=== PATIENT | male | born 1965 | race Caucasian/White ===

== ENCOUNTER 2017-04-18 14:12 | Emergency (ER) | payer OTHER ==
[~2017-04-18] VITALS: Ht 172.7 cm; Wt 108.2 kg
[2017-04-18 14:14] VITALS: TEMP 36.8; Ht 172.7 cm; Wt 108.2 kg
--- NOTE | 2017-04-18 15:24 | EMERGENCY ROOM VISIT NOTE ---
ED Visit Note First contact with patient: 14:23 CHIEF COMPLAINT: Right-sided nosebleed 1 hour HISTORY OF PRESENT ILLNESS: Patient is a 52-year-old male who presents the emergency department for evaluation of right-sided epistaxis. His nosebleed started about 1 hour ago while he was at work. He reports intermittent right- sided bleeding for the last 2 days, but states that he is unable to get it controlled at home by sticking toilet paper up his nose. He has just recently begun to apply Neosporin to his nose. He states that the right nostril began bleeding about an hour ago. He tried applying compression with toilet paper and paper towels, but states that he was unable to get the bleeding to stop. He reports that it was dripping out the right side of his nose, he is also getting some drainage down the back of his throat. He has been using a humidifier at night. He had an episode of similar nosebleeds a couple of months ago but treated this at home and the bleeding was not as severe. He has not been ill recently with any cold or upper respiratory symptoms and denies any trauma to the nose. He takes Advil sparingly for hip pain, is not on any aspirin or other blood thinning medications. REVIEW OF SYSTEMS: Review of systems as per HPI. All other systems reviewed were negative. 10 systems reviewed. PMH: Electronic medical records are reviewed and summarized as above/below. See Problem List. SOCIAL HISTORY: Patient lives at home with his . Non-smoker. PHYSICAL EXAM: Vital Signs: Reviewed Nurse's notes. He was noted to be hypertensive in triage. CONSTITUTIONAL: Patient is a well-appearing 52-year-old white male who is awake and alert and in no acute distress. He has a nasal clamp in place put on by triage staff. HEENT: Normocephalic, atraumatic. Pupils equal, round, reactive to light and accommodation. EOMs intact without nystagmus. Sclera are anicteric. Tympanic membranes intact, with normal landmarks. External canals are clear. Oropharynx are clear. Mucous membranes are moist. Examination of the patient's nose note dried blood in the right nares, he does have a small friable lesion on the septum low that appears to be the source of bleeding. Left nares is clear. Mucous membranes are moist and patent. EMERGENCY DEPARTMENT COURSE: The patient was seen and evaluated as above. Nasal clamp was removed for examination. There was no active bleeding at this time, but visualized low on septum was a very friable area which I suspect is the source of his bleed. This area was cauterized using a silver nitrate stick. Clamp was left off, and the patient was observed and reassessed after roughly 30 minutes. There was no further bleeding. The site was rechecked and appeared stable. Supportive care measures were discussed. Patient was advised to avoid manipulating or blowing the nose here for the next several days, and educated on using a saline nasal spray, rather than trying to apply a topical ointment. He will continue the cool mist humidifier at nighttime, and was also educated on Afrin protocol to stop a nosebleed at home in the future. Blood pressure was rechecked at discharge and was normal. I suspect the elevated blood pressure reading was situational. Medication reconciliation: I attest that I have personally reviewed the patient' s current medication list. Problem List Medical Problems: (1) Migraine syndrome Status: Chronic Surgical Problems: (1) History of back surgery Status: Resolved Current/Historical Medications Scheduled Nicotine Polacrilex (Thrive), 1 DOSE PO DAILY Topiramate (Topamax), 150 MG PO BID Allergies Coded Allergies: Adhesives (Verified Allergy, Unknown, 04/18/17) Penicillins (Verified Allergy, Unknown, 04/18/17) Uncoded Allergies: NONSTEROIDAL (Adverse Reaction, Unknown, NO NSAIDS, PER MD 10/15 ADM * * NOT ADR, JUST REMINDER, 03/19/09) Vital Signs Date Time Temp Pulse Resp B/P (MAP) Pulse Ox O2 Delivery O2 Flow Rate FiO2 04/18/17 14:14 36.8 95 18 170/107 97 Room Air Departure Information Impression Primary Impression: Epistaxis Referrals Augustin Wong M.D. (PCP) Patient Instructions My [facility] Additional Instructions EPISTAXIS (NOSE BLEED) INSTRUCTIONS: Avoid scratching, rubbing, picking, or blowing your nose. The youth program director your nasal passages the more likely they are to bleed. Use an Stanly Worthington nasal spray or similar generic saline spray to keep the nose moist 3 to 4 times a day. If bleeding recurs below the nose to clear any clots, and apply 2 squirts of Afrin to the nostrils. Apply direct pressure with a nasal clamp for an uninterrupted 30 minutes. On and off pressure is much less effective because it will disturb the clots that are forming. If the bleeding is still a problem after 30 minutes or is so heavy despite the pressure return to the emergency department. Continue current medications. Follow-up with your primary care physician in 2 to 3 days for a recheck of your current condition. Follow up with ENT surgery if your symptoms persist.
[2017-04-18] MEDS ORDERED: NICO2GUM PO (15:30)
[2017-04-18] MEDS ORDERED: TOPI100T20 PO (15:30)
[2017-04-18 15:40] VITALS: BP 128/91; PULSE 76; O2SAT 97
== END 2017-04-18 15:37 | disposition home or self-care (01) ==
LOC: C.EDB 14:14 → C.EDD 15:37
DX: R04.0 Epistaxis (principal); G43.909 Migraine, unspecified, not intractable, without status migrainosus; Z79.899 Other long term (current) drug therapy; Z88.0 Allergy status to penicillin; Z91.048 Other nonmedicinal substance allergy status

== ENCOUNTER → 2017-09-07 | Outpatient (CLI) | payer OTHER ==
[~2017-09-07] MED LIST: ACET-24 PO; ASPI-461 PO; DOXY100C41 PO; IBUP-103 PO; OMEPRAZOLE PO; ONDA-170 PO; TOPI100T20 PO; ULT50X PO; [UNRECOGNIZED DRUG - OTHER] PO
--- NOTE | 2017-09-07 09:00 | DIAGNOSTIC IMAGING REPORT ---
CHEST 2 VIEWS ROUTINE HISTORY: 52 years-old Male PAT preoperative exam. No acute chest complaints COMPARISON: None available TECHNIQUE: PA and lateral views of the chest FINDINGS: Cardiomediastinal and hilar silhouettes are within normal limits. Mild right hemidiaphragmatic elevation. There is no pneumothorax, pleural effusion, focal airspace consolidation or overt pulmonary edema. The bones of the chest appear grossly intact. There are degenerative changes of the shoulders and spine. IMPRESSION: No acute process. The above report was generated using voice recognition software. It may contain grammatical, syntax or spelling errors. Electronically signed by: Ki Fernandez M.D. 09/07/2017 8:59 AM Dictated Date/Time: 09/07/2017 8:58 AM
[2017-09-07 10:34] LABS: BASO % 0.4 %; BASO ABS # 0.03 K/uL (0-0.2); EOS % 2.4 %; EOS ABS # 0.18 K/uL (0-0.5); HEMATOCRIT 45.2 % (42-52); HEMOGLOBIN 16.1 g/dL (14.0-18.0); IG# 0.03 K/uL (0.00-0.02); LYMPH % 26.1 %; LYMPH ABS # 1.97 K/uL (1.2-3.4); MEAN CELL VOLUME 87.3 fL (80-100); MEAN CORPUSCULAR HEMOGLOBIN 31.1 pg (25-34); MEAN CORPUSCULAR HGB CONC 35.6 g/dl (32-36); MEAN PLATELET VOLUME 9.9 fL (7.4-10.4); MONO % 10.9 %; MONO ABS # 0.82 K/uL (0.11-0.59); NEUT % 59.8 %; NEUT ABS # 4.51 K/uL (1.4-6.5); PLATELET COUNT 254 K/uL (130-400); RED CELL DISTRIBUTION WIDTH CV 12.9 % (11.5-14.5); RED CELL DISTRIBUTION WIDTH SD 41.5 fL (36.4-46.3); WHITE BLOOD COUNT 7.54 K/uL (4.8-10.8)
[2017-09-07 10:43] LABS: ALBUMIN 4.2 gm/dl (3.4-5.0); ALKALINE PHOSPHATASE 63 U/L (45-117); ALT/SGPT 31 U/L (12-78); AST/SGOT 22 U/L (15-37); BLOOD UREA NITROGEN 16 mg/dl (7-18); CARBON DIOXIDE 25 mmol/L (21-32); CREATININE 1.15 mg/dl (0.60-1.40); GLUCOSE 92 mg/dl (70-99); POTASSIUM 4.2 mmol/L (3.5-5.1); SODIUM 139 mmol/L (136-145); TOTAL PROTEIN 7.2 gm/dl (6.4-8.2)
[2017-09-07 10:45] LABS: PTT PATIENT 25.8 SECONDS (21.0-31.0)
--- NOTE | 2017-09-17 07:16 | CODING QUERY MEDICAL NECESSITY ---
CQTREATMENT RENDERED WITHOUT A DIAGNOSIS To promote full compliance with coding requirements relating to patient care, physician participation is requested in all cases of crane helper uncertainty. Please assist us with providing a diagnosis/symptom for the test(s) below: A diagnosis/symptom was not documented on your Order. A valid diagnosis/symptom is required to bill all insurances. Please remember that we are unable to code a diagnosis of rule out, probable, possible, questionable, or suspected. Tests that require a diagnosis: DOS 09/07/17 COMPLETE BLOOD COUNTS TEST URINE CULTURE TEST CHEST XRAY EKG TEST Provider Signature: Date: Thank you Jessy Bass Health Information Management Once completed, please kindly fax back to [phone] For questions please call [phone]
--- NOTE | 2017-10-07 17:56 | History and Physical ---
History & Physical Date Oct 07, 2017. Chief Complaint right hip pain History of Present Illness The patient is a 52 year old male with complaints of right hip pain for years. Limping constantly and cant live with this pain anymore. Hes ready for KATLYN. Past Medical/Surgical History Medical Problems: (1) Migraine syndrome Surgical Problems: (1) History of back surgery Additional History Hepatic Disease: No Endocrine Disorder: No Kidney Disease: No Hypertension: No Heart Disease: No Bleeding Tendencies: No Infectious Diseases: No Allergies Coded Allergies: Adhesives (Verified Allergy, Unknown, SKIN IRRITATION WITH TAPES, 08/28/17) Eggs or Egg-derived Products (Verified Allergy, Unknown, MIGRAINES, ) Milk (Verified Allergy, Unknown, GI UPSET, 08/28/17) Penicillins (Verified Allergy, Unknown, UNKNOWN- A CHILD, 08/28/17) Home Medications Scheduled Topiramate (Topamax), 150 MG PO BID [Omeprazole], 1 TAB PO QAM [Thrive Vit Pack], 1 DOSE PO QAM Scheduled PRN Ibuprofen Tab (Advil), 400-600 MG PO HS PRN for Pain Physical Examination Skin: warm/dry, no rash Eyes: normal inspection, EOMI, sclerae normal ENT: normal ENT inspection, pharynx normal Head: normocephalic, atraumatic Neck: supple, no adenopathy, trachea midline Respiratory/Chest: lungs clear, normal breath sounds, no respiratory distress Cardiovascular: regular rate, rhythm, no edema, no murmur Abdomen / GI: normal bowel sounds, non tender Back: normal inspection Extremities: normal inspection, normal range of motion, + pertinent finding ( pain with rom of right hip) Neurologic/Psych: no motor/sensory deficits, alert, normal reflexes, oriented x 3 Diagnosis djd right hip Plan of Treatment admit and undergo right KATLYN.
== END | disposition home or self-care (01) ==
LOC: C.RAD 07:58
PROVIDERS: ATTEND Orthopaedic Surgery
DX: Z01.812 Encounter for preprocedural laboratory examination (principal)

== ENCOUNTER 2017-10-08 06:57 | Inpatient (IN) | payer OTHER ==
[2017-08-28 15:10] VITALS: BMI 34.0
[2017-09-07 08:12] VITALS: BMI 35.0
--- NOTE | 2017-09-07 08:28 | PAT Medication Instructions ---
Service Date Sep 07, 2017. Current Home Medication List Ibuprofen Tab (Advil), 400-600 MG PO HS PRN for Pain Topiramate (Topamax), 150 MG PO BID [Omeprazole], 1 TAB PO QAM [Thrive Vit Pack], 1 DOSE PO QAM Medication Instructions For Your Scheduled Surgery - Hold the following medications 2 weeks prior to surgery: [Thrive Vit Pack], 1 DOSE PO QAM - Check [facility] surgeon for instructions: Ibuprofen Tab (Advil), 400-600 MG PO HS PRN for Pain - Take the following medications the morning of surgery with a sip of water: Topiramate (Topamax), 150 MG PO BID [Omeprazole], 1 TAB PO QAM - Take the following medications as scheduled the night before surgery: Topiramate (Topamax), 150 MG PO BID If you have any questions please call us at [phone] or [phone] or [phone]
[2017-10-08] VITALS (8 sets, daily range): BP systolic 120–143; BP diastolic 73–84; PULSE 78–101; TEMP 36.4–37.1; O2SAT 95–99; Ht 172.7 cm; Wt 105.2 kg
[~2017-10-08] VITALS: Ht 172.7 cm; Wt 105.2 kg
[2017-10-08] MEDS: TRANEXAMIC ACID INJ 1,000 MG x 2 Bags IV SCH ×4 (06:30→08:50)
[~2017-10-08 06:57] MED LIST changes: -ACET-24 PO; +ACETAMINOPHEN 500 MG TAB PO SCH; -ASPI-461 PO; +CEFAZOLIN 2000MG IV PUSH 15 ML IV SCH; +CeleBREX 200 MG CAP PO SCH; +DEXAMETHASONE 4 MG TAB PO SCH; -DOXY100C41 PO; +FAMOTIDINE 20 MG TAB PO SCH; +LACTATED RINGER'S 1000ML 1,000 ML IV SCH; +LACTATED RINGER'S 1000ML 500 ML IV SCH; +LACTATED RINGER'S 1000ML IV SCH; +METOCLOPRAMIDE HCL 10 MG TAB PO SCH; -ONDA-170 PO; +ROPIVACAINE 5MG/ML 30 ML 150 MG, BUPIVACAINE 0.5% MPF INJ 30 ML, EpINEphrine HCL INJ 0.... INFIL SCH; -ULT50X PO
[2017-10-08] MEDS ORDERED: ONDANSETRON INJ 2 MG/ML 2 ML VIAL IV PRN ×2 (07:30→10:15)
[2017-10-08] MEDS ORDERED: HYDROmorphone INJ 2 MG/ML SYR/VIAL IV PRN (07:30)
[2017-10-08] MEDS ORDERED: EpHEDrine SULFATE INJ 50 MG/ML AMP IV PRN (07:30)
[2017-10-08] MEDS ORDERED: PHENYLEPHRINE 100MCG/ML 5ML SYR IV PRN (07:30)
[2017-10-08] MEDS ORDERED: ATROPINE SULFATE 0.1 MG/ML 5ML SYR IV PRN (07:30)
[2017-10-08] MEDS ORDERED: MIDAZOLAM HCL 1 MG/ML 2ML VIAL ONE ×2 (07:56→07:57)
[2017-10-08] MEDS ORDERED: FENTANYL CITRATE INJ 50 MCG/1 ML 2 ML VIAL ONE (07:57)
--- NOTE | 2017-10-08 08:14 | History & Physical Bridge Note ---
H&P Re-Evaluation Bridge Note: I have examined the patient, reviewed the History & Physical and in the interval since the performance of the History & Physical I have noted the following changes of clinical significance: No changes noted
[2017-10-08] MEDS ORDERED: NURSING VERBAL MED ORDER ONE (08:15)
[2017-10-08] MEDS ORDERED: BUPIVACAINE 0.5 % 5 MG/1 ML PF 10ML VIAL ONE (08:17)
[2017-10-08] MEDS ORDERED: CEFAZOLIN SOD 2000MG/15 ML IV PUSH ONE (08:18)
[2017-10-08] MEDS ORDERED: ORTHO JOINT ANESTHETIC ONE (08:38)
[2017-10-08] MEDS ORDERED: BACITRACIN 50000 UNIT VIAL ONE (08:38)
[2017-10-08] MEDS ORDERED: POVIDONE-IODINE OP SOLN 30 ML BTL ONE (08:39)
[2017-10-08] MEDS ORDERED: EpHEDrine SULFATE INJ 50 MG/ML AMP ONE (09:31)
[2017-10-08] MEDS ORDERED: EpHEDrine SULFATE 50MG/5ML SYR ONE (09:41)
[2017-10-08] MEDS ORDERED: PROPOFOL IV EMULSION 10 MG/ML 20 ML VIAL ONE (09:41)
[2017-10-08] MEDS ORDERED: LIDOCAINE HCL 2% 2 ML VIAL (20MG/ML) ONE (09:41)
[2017-10-08] MEDS ORDERED: SODIUM CHLORIDE 0.9% INJ 10 ML VIAL ONE (09:42)
[2017-10-08] MEDS ORDERED: ONDANSETRON INJ 2 MG/ML 2 ML VIAL ONE (09:56)
--- NOTE | 2017-10-08 10:13 | [facility] Post Operative Brief Note ---
Immediate Operative Summary Operative Date Oct 08, 2017. Pre-Operative Diagnosis Right Hip Degenerative Joint Disease Post-Operative Diagnosis Right Hip Degenerative Joint Disease Procedure(s) Performed Right Total Hip Arthroplasty Surgeon Dr Davies Mower Sharpener Surgeon(s) Chin Salazar PA-C Estimated Blood Loss 40cc Findings Consistent with Post-Op Diagnosis Specimens As Per Tavares Monge. Right Femoral Head Drains one Anesthesia Type MAC Spinal Regional Complication(s) none Disposition Accompanied Pt To Recover: no Disposition: Recovery Room / PACU
[2017-10-08] MEDS ORDERED: ALUMINUM/MAGNESIUM/SIMETH (MAALOX MAX) 30 ML UDC PO PRN (10:15)
[2017-10-08] MEDS ORDERED: TRAMADOL HCL 50 MG TAB PO PRN (10:15)
[2017-10-08] MEDS ORDERED: MAGNESIUM HYDROXIDE SUSP 30 ML UDC PO PRN (10:15)
[2017-10-08] MEDS ORDERED: BISACODYL 10 MG SUPP PR PRN (10:15)
[2017-10-08] MEDS ORDERED: ZOLPIDEM TARTRATE 5 MG TAB PO PRN (10:15)
[2017-10-08] MEDS ORDERED: CEFAZOLIN IV 2 MG in DEXTROSE 5% 50ML 50 ML IV SCH (10:15)
--- NOTE | 2017-10-08 10:15 | [facility] Operative Report ---
Operative Report Operative Date Oct 08, 2017. Pre-Operative Diagnosis Right Hip Degenerative Joint Disease Post-Operative Diagnosis Right Hip Degenerative Joint Disease Procedure(s) Performed Right Total Hip Arthroplasty Surgeon Dr Davies Senior Bi Architect Surgeon(s) Chin Salazar PA-C Estimated Blood Loss 40cc Specimens As Per Tavares Monge. Right Femoral Head Drains one Anesthesia Type MAC Spinal Regional Complication(s) none Disposition no Recovery Room / PACU Description of Procedure IMPLANTS USED: Tonya size 56 mm Trident 2 Tritanium acetabular cup, one acetabular screw, a 36 mm X3 elevated liner, a #5 Accolade 2 stem with a 127 neck and a 36 mm +0 ceramic INDICATIONS: Mr. Ruiz is a pleasant male who has unfortunately failed all forms of conservative measures. Therefore, they have has decided to undergo elective surgical intervention. All risks and benefits of the surgery were discussed with the patient and the family in entirety. PROCEDURE: The patient was brought to the operating room and properly identified by myself, anesthesia, and staff. Patient was given a spinal anesthetic and placed on the operating table with the right hip up. The hip was then prepped and draped in the standard orthopedic fashion. We made a standard posterolateral approach over the greater trochanteric area. We then dissected down to subcutaneous tissue until the fascia was identified. We incised the fascia in line with the skin incision. We then split the gluteus helio muscles with finger dissection. We then put the Charnley retractor in place. We placed the retractor underneath the gluteus medius to expose the piriformis. The piriformis was then tagged with a tag suture and released from the insertion from the greater trochanteric area with the use of electrocautery. We then performed a T capsulotomy and the femoral head and neck were atraumatically dislocated. We then performed femoral neck osteotomy at the pre-template site. We removed the femoral head and neck without difficulty. We then placed the retractor around the acetabulum. We then began to ream the acetabulum to the appropriate size. We then impacted the cup into place and had a very good fixation within the pelvis. We then put the liner in place as well. Then using multiple size approaches from the Accolade 2 system a size #5 fit very nicely in the proximal femur. I then put trial components in place. WE had very good range of motion, excellent stability, and excellent leg length equality. We removed the trial components and irrigated the wound. We then impacted the components in place and irrigated the wound once more. We then closed the capsule and fascia with a 0 Vicryl suture, the deep dermis with 2-0 Vicryl suture, and finally the skin with a running 3-0 Vicryl subcuticular stitch. A sterile dressing was applied. The patient was taken to the recovery room in stable condition. Due to the complex nature of the procedure, the entire surgery was performed with the operational assistance of Chin Salazar PA-C. The desk assistant was under direct supervision, was involved in the actual performance of all aspects of the surgical procedure including hemostasis, tissue retraction and incision, instrument management, patient positioning, and wound closure. I attest to the content of the Intraoperative Record and any orders documented therein. Any exceptions are noted below.
--- NOTE | 2017-10-08 11:30 | Anesthesiology Progress Note ---
Anesthesia Post Op Note Date & Time Oct 08, 2017 at 11:30 Vital Signs Pain Intensity: 0 Vital Signs Past 12 Hours Date Time Temp Pulse Resp B/P (MAP) Pulse Ox O2 Delivery O2 Flow Rate FiO2 10/08/17 11:20 70 16 126/73 98 Nasal Cannula 2 10/08/17 11:10 36.6 76 16 123/67 99 Nasal Cannula 2 10/08/17 11:00 64 12 129/72 99 Nasal Cannula 2 10/08/17 10:50 64 14 121/70 99 Nasal Cannula 2 10/08/17 10:43 36.3 65 16 123/67 97 Oxymask 10 10/08/17 07:51 36.9 78 20 130/84 Room Air 98 Notes Mental Status: alert / awake / arousable, participated in evaluation Pt Amnestic to Procedure: Yes Nausea / Vomiting: adequately controlled Pain: adequately controlled Airway Patency, RR, SpO2: stable & adequate BP & HR: stable & adequate Hydration State: stable & adequate Anesthetic Complications: no major complications apparent
[2017-10-08] MEDS: SODIUM CHLORIDE 0.9% 1000ML 1,000 ML IV SCH ×2 (12:25→22:31)
[2017-10-08] MEDS ORDERED: TRANEXAMIC ACID INJ 1,000 MG in SODIUM CHLORIDE 0.9% 100ML 100 ML IV ONE (14:00)
[2017-10-08] MEDS: OXYCODONE HCL IR 5 MG TAB (IMMEDIATE RELEASE) PO PRN ×2 (14:55→19:31)
--- NOTE | 2017-10-08 15:47 | Discharge Instructions ---
Discharge Instructions Date of Service Oct 08, 2017. Admission Reason for Admission: Right Hip Osteoarthritis Discharge Discharge Diagnosis / Problem: Right Hip djd Discharge Goals Goal(s): Decrease discomfort, Improve function, Increase independence Activity Recommendations Activity Limitations: per Instructions/Follow-up section Weightbearing Status: Right weightbearing (as tolerated) . Instructions / Follow-Up Instructions / Follow-Up ACTIVITY RECOMMENDATIONS: SELF CARE INSTRUCTIONS AFTER TOTAL HIP REPLACEMENT Until the incision and soft tissues around your hip have healed, there is a possibility that the hip prosthesis could dislocate. A. Observe the following precautions to prevent dislocation: 1. Don't bend your hip greater than 90 degrees. 2. Avoid crossing your legs or ankles while standing or lying. 3. Sit with your feet placed 6 inches apart. 4. When sitting, keep your knees below your hips. Sit on a firm surface, avoid deep, soft chairs and couches. Use an elevated toilet seat in the bathroom. 5. Don't bend over at the waist. Use a long handled shoehorn and a sock aid to help you put on your shoes and socks. A bridal service sales and management can help you pickup driver objects that are too high or too low to reach. 6. Keep car riding to a minimum for at least one month after surgery. B. Your balance may be shaky for a while. Use crutches or a walker until directed by your doctor. C. Use hand rails when walking on stairs. D. Wear low heeled shoes with non-slip soles. E. Be sure that your floors are free of things that could trip you - throw rugs , electrical cords, small objects. Avoid wet and waxed floors, especially with crutches and canes. F. Try to walk several times a day with rest periods between. G. Continue with all the exercises taught to you in the hospital. Again, make walking a part of your daily routine. SPECIAL CARE INSTRUCTIONS: VERY IMPORTANT TO READ AND REVIEW A. You may still be at risk for phlebitis and blood clots. 1. Wear surgical stockings (KIERRA hose) for 2 weeks after surgery to improve circulation and reduce swelling. 2. Take Aspirin 81mg twice daily for 4 weeks or as directed by your doctor. This is your blood thinner. 3. High risk patients may be prescribed a stronger blood thinner if necessary. 4. If you are on Coumadin normally, your family doctor/preparation room worker should monitor your blood work. Expect a phone call the day of or the day after bloodwork is drawn to adjust your dosage. B. You must take antibiotics before having dental work, bladder, bowel and other surgery. Your doctor will provide you with a permanent card to carry describing precautions. C. Call [facility] if you have a fever, redness or swelling around the incision, cloudy drainage from incision, or sudden increase in pain in your hip, not relieved by your regular pain medication. D. Please call the office at if you have any concerns or questions about your operation or recovery. * YOU MAY SHOWER, NO TUB BATHS UNTIL CLEARED BY YOUR DOCTOR. * WEAR KIERRA HOSE 20 HOURS PER DAY FOR 2 WEEKS. * YOU SHOULD USE A WALKER OR CRUTCHES FOR 2-4 WEEKS. THIS WILL HELP PREVENT STRAIN ON YOUR HIP MUSCLE AND ALLOW IT TO HEAL PROPERLY. YOU MAY WEAN TO A CANE TOLERATED. * MOST PATIENTS WILL HAVE HOME NURSING FOR THERAPY. IF YOU DECIDE TO DO OUTPATIENT PHYSICAL THERAPY, PLEASE SCHEDULE THIS 3 TIMES PER WEEK. * DERMABOND Prineo- This is a mesh tape dressing that is covered with glue. It should remain in place until the incision is properly healed, usually 10-14 days. This dressing is designed to naturally slough off. You may trim the excess mesh tape as it peels off. Incision may be briefly wet in a shower. Dry immediately by blotting with a clean, dry towel. Do not bath or swim until instructed by your doctor. Do not scratch, rub, or pick at the dressing. Do not apply any topical ointments or lotions until dressing is completely removed and/or instructed by your doctor. There may be a small piece of suture material at one end of your incision. Do not pull or trim this. If it is bothersome or catching on clothing, you may cover it with a band-aid. . FOLLOW UP VISIT: If appointment is not already scheduled: Please call [facility] to make a follow-up appointment for 2 weeks after your surgery at . Current Hospital Diet Patient's current hospital diet: Regular Diet Discharge Diet Recommended Diet: Regular Diet Procedures Procedures Performed: Right Total Hip Arthroplasty Pending Studies Studies pending at discharge: no Medical Emergencies . Who to Call and When: Medical Emergencies: If at any time you feel your situation is an emergency, please call 911 immediately. . Non-Emergent Contact Non-Emergency issues call your: Surgeon Call Non-Emergent contact if: temperature is above 101.5, your pain is not controlled, your pain is worsening, wound has increased drainage, wound has increased redness . "Provider Documentation" section prepared by Chin Salazar. . [place] Drug Monitoring Program Search Results: patient reviewed within database, no issues identified
[2017-10-08] MEDS ORDERED: ACET-24 PO ×2 (15:50)
[2017-10-08] MEDS ORDERED: ULT50X PO ×2 (15:50)
[2017-10-08] MEDS ORDERED: ONDA-170 PO ×2 (15:50)
[2017-10-08] MEDS ORDERED: ASPI-461 PO ×2 (15:50)
[2017-10-08] MEDS: CEFAZOLIN IV 2,000 MG in SYRINGE 0 ML IV SCH ×2 (15:51→23:02)
[2017-10-08] MEDS: ACETAMINOPHEN 500 MG TAB PO SCH ×2 (15:52→23:02)
[2017-10-08] MEDS ORDERED: DOXY100C41 PO ×4 (16:29→16:31)
[2017-10-08] MEDS: ASPIRIN 81 MG ECTAB PO SCH (20:58)
[2017-10-08] MEDS: TOPIRAMATE 100 MG TAB PO SCH (20:58)
[2017-10-08] MEDS: DOCUSATE SODIUM 100 MG CAP PO SCH (20:58)
[2017-10-09 03:44] VITALS: BP 128/71; PULSE 89; TEMP 36.8; O2SAT 99
[2017-10-09] MEDS: OXYCODONE HCL IR 5 MG TAB (IMMEDIATE RELEASE) PO PRN ×2 (03:58→08:21)
[2017-10-09] MEDS ORDERED: CEFAZOLIN 2000MG IV PUSH 15 ML IV SCH (06:00)
[2017-10-09 06:07] LABS: BASO % 0.1 %; BASO ABS # 0.01 K/uL (0-0.2); EOS % 0.2 %; EOS ABS # 0.02 K/uL (0-0.5); HEMATOCRIT 39.5 % (42-52); IG# 0.03 K/uL (0.00-0.02); LYMPH % 13.9 %; LYMPH ABS # 1.62 K/uL (1.2-3.4); MEAN CELL VOLUME 88.8 fL (80-100); MEAN CORPUSCULAR HEMOGLOBIN 31.5 pg (25-34); MEAN CORPUSCULAR HGB CONC 35.4 g/dl (32-36); MEAN PLATELET VOLUME 9.5 fL (7.4-10.4); MONO % 7.4 %; MONO ABS # 0.86 K/uL (0.11-0.59); NEUT % 78.1 %; NEUT ABS # 9.09 K/uL (1.4-6.5); PLATELET COUNT 224 K/uL (130-400); RED CELL DISTRIBUTION WIDTH CV 12.8 % (11.5-14.5); RED CELL DISTRIBUTION WIDTH SD 41.3 fL (36.4-46.3); WHITE BLOOD COUNT 11.63 K/uL (4.8-10.8)
--- NOTE | 2017-10-09 07:17 | Orthopedic Progress Note ---
Orthopedic Progress Note Date of Service Oct 09, 2017. Subjective Post OP Day: 1 Reports: feeling well, Denies: complaints Additional Notes: sitting up in chair this AM. Doing well. Objective calves soft nontender, N/V intact, hip located, dressing C/D/I, A&O x3, toes mobile, hemovac drainage (25ml latest shift) Date Time Temp Pulse Resp B/P (MAP) Pulse Ox O2 Delivery O2 Flow Rate FiO2 10/09/17 03:44 36.8 89 16 128/71 (90) 99 Room Air 10/08/17 23:17 37.1 93 16 120/73 (89) 98 Room Air 10/08/17 23:00 Room Air 10/08/17 20:03 36.7 97 17 131/75 (93) 98 Room Air 10/08/17 15:46 Room Air 10/08/17 15:05 36.9 101 18 130/75 (93) 95 Room Air 10/08/17 13:45 99 18 129/81 (97) 99 2.0 10/08/17 12:44 91 18 143/81 (101) 98 Room Air 10/08/17 12:15 36.4 84 18 123/80 (94) 98 2.0 10/08/17 11:45 Nasal Cannula 2.0 10/08/17 11:45 36.5 83 16 129/75 (93) 98 Nasal Cannula 2.0 10/08/17 11:45 Nasal Cannula 2.0 10/08/17 11:30 36.6 66 14 129/66 100 Nasal Cannula 2 10/08/17 11:20 70 16 126/73 98 Nasal Cannula 2 10/08/17 11:10 36.6 76 16 123/67 99 Nasal Cannula 2 10/08/17 11:00 64 12 129/72 99 Nasal Cannula 2 10/08/17 10:50 64 14 121/70 99 Nasal Cannula 2 10/08/17 10:43 36.3 65 16 123/67 97 Oxymask 10 10/08/17 07:51 36.9 78 20 130/84 Room Air 98 Laboratory Results 24 Hours: Test 10/09/17 05:42 White Blood Count 11.63 K/uL Red Blood Count 4.45 M/uL Hemoglobin 14.0 g/dL Hematocrit 39.5 % Mean Corpuscular Volume 88.8 fL Mean Corpuscular Hemoglobin 31.5 pg Mean Corpuscular Hemoglobin Concent 35.4 g/dl Platelet Count 224 K/uL Mean Platelet Volume 9.5 fL Neutrophils (%) (Auto) 78.1 % Lymphocytes (%) (Auto) 13.9 % Monocytes (%) (Auto) 7.4 % Eosinophils (%) (Auto) 0.2 % Basophils (%) (Auto) 0.1 % Neutrophils # (Auto) 9.09 K/uL Lymphocytes # (Auto) 1.62 K/uL Monocytes # (Auto) 0.86 K/uL Eosinophils # (Auto) 0.02 K/uL Basophils # (Auto) 0.01 K/uL Assessment & Plan Assessment: POD 1 s/p Right KATLYN Plan: PT/OT Planning for [facility] services Dc to home today after PT/OT Inhouse Planning Pain Management: Ultram, PO Tylenol, Oxy IR DVT Prophylaxis: TEDs, SCDs, ASA Discharge Planning Discharge Planning: home with home health
[2017-10-09] MEDS ORDERED: ULT50X PO ×2 (07:18)
[2017-10-09] MEDS: ACETAMINOPHEN 500 MG TAB PO SCH (07:20)
[2017-10-09] MEDS ORDERED: DEXAMETHASONE INJ 10 MG in SYRINGE 0 ML IV ONE (07:30)
[2017-10-09 07:39] VITALS: BP 118/75; PULSE 78; TEMP 36.6; O2SAT 100
[2017-10-09] MEDS: TOPIRAMATE 100 MG TAB PO SCH (08:21)
[2017-10-09] MEDS: DOCUSATE SODIUM 100 MG CAP PO SCH (08:22)
[2017-10-09] MEDS: ASPIRIN 81 MG ECTAB PO SCH (08:22)
[2017-10-09] MEDS: SODIUM CHLORIDE 0.9% 1000ML 1,000 ML IV SCH (08:23)
[2017-10-09 09:03] VITALS: BP 118/75; PULSE 78; TEMP 36.6; O2SAT 100
[2017-10-09 12:40] VITALS: BP 137/85
== END 2017-10-09 13:14 | disposition home health service (06) | DRG 470 ==
LOC: C.ACU 06:57 → C.3E 10:11 → ENRESERV 11:19
PROVIDERS: ADMIT Orthopaedic Surgery; ATTEND Orthopaedic Surgery
PROC: 0SR90JA Replacement of Right Hip Joint with Synthetic Substitute, Uncemented, Open Approach (ICD-10-PCS; principal; 2017-10-08 09:30)
DX: M16.11 Unilateral primary osteoarthritis, right hip (principal); Z91.012 Allergy to eggs; Z91.011 Allergy to milk products; Z88.0 Allergy status to penicillin